=== PATIENT | male | born 1995 | race American Indian/Alaskan Native ===

== ENCOUNTER 2017-06-29 15:04 | Emergency (ER) | payer SELFPAY ==
[2017-06-29 16:34] LABS: Bilirubin,Urine NEG (Negative); Blood,Urine NEG (Negative); Ketones,Urine NEG (Negative); Leukocyte Esterase,Urine LG (Negative); Nitrite,Urine NEG (Negative); Protein,Urine <15 mg/dL mg/dL (Negative); Urobilinogen,Urine < 2.0 mg/dL (<2.0)
[2017-06-29 17:12] LABS: Basophils % (Auto) 0.4 % (0.0-1.8); Eosinophils % (Auto) 0.5 % (0.0-4.3); Hematocrit 52.1 % (35.5-45.6); Mean Corpuscular HGB Conc 33 % (32-34); Mean Corpuscular Hemoglobin 29 pg (28-32); Mean Corpuscular Volume 88 fl (84-94); Platelet Count 268 K/mm3 (140-440); Red Blood Count 5.91 M/mm3 (3.65-5.03); Red Cell Distribution Width 14.6 % (13.2-15.2); White Blood Count 11.5 K/mm3 (4.5-11.0)
[2017-06-29 17:18] LABS: Alanine Aminotransferase 8 units/L (7-56); Albumin 5.4 g/dL (3.9-5); Albumin/Globulin Ratio 1.4 %; Alkaline Phosphatase 100 units/L (35-129); Anion Gap 21 mmol/L; BUN/Creatinine Ratio 6; Blood Urea Nitrogen 5 mg/dL (9-20); Calcium 10.8 mg/dL (8.4-10.2); Carbon Dioxide 28 mmol/L (22-30); Chloride 93.3 mmol/L (98-107); Glucose 83 mg/dL (75-100); Lipase 17 units/L (13-60); Potassium 4.9 mmol/L (3.6-5.0); Sodium 137 mmol/L (137-145); Total Protein 9.3 g/dL (6.3-8.2)
[2017-06-29] MEDS ORDERED: MORPHINE IV ONE (17:31)
[2017-06-29] MEDS ORDERED: NACL 0.9% 1000 ML 1,000 ML IV ONE (17:31)
[2017-06-29] MEDS ORDERED: ROCEPHIN/NS 1 GM/50 ML 1 GM/50 ML BAG IV ONE (17:32)
--- NOTE | 2017-06-29 17:33 | Emergency Department Report ---
HPI - General Chief Complaint: Abdominal Pain Time Seen by Provider: 06/29/17 15:54 - HPI HPI: This is a 22 year-old male who presents to the emergency department from home, dropped off by his mother, with complaint of abdominal pain, nausea, vomiting and lightheadedness. He says that this occurred last week but that went away and then came back this morning. He has not taken anything for his symptoms prior to presentation. No recent travel or sick contacts at home. He does not have a primary care physician. He denies any dysuria, discharge, back pain, fever. He says that the abdominal pain changes locations depending on how he is laying or moving. He has a history of an intestinal obstruction requiring some type of surgical intervention that occurred a few years ago and he thinks it was done at [facility]. ED Past Medical Hx - Past Medical History Previous Medical History?: No - Surgical History Past Surgical History?: Yes Additional Surgical History: intenstine obstruction - Social History Smoking Status: Former Smoker Substance Use Type: None - Medications Home Medications: Home Medications Medication Instructions Recorded Confirmed Last Taken Type HYDROcodone/APAP 5-325 [[place] 1 each PO Q6HR PRN #14 tablet 01/06/14 Unknown Rx 5/325 mg] Ibuprofen [Motrin 600 MG tab] 600 mg PO Q8H PRN #30 tablet 01/06/14 Unknown Rx Nitrofurantoin Monohyd/M-Cryst 100 mg PO BID #14 capsule 06/29/17 Unknown Rx [Macrobid 100 mg Capsule] ED Review of Systems ROS: Stated complaint: ABDOMINAL PAIN,HEADACHE Other details as noted in HPI Comment: All other systems reviewed and negative Constitutional: denies: chills, fever Eyes: denies: eye pain, eye discharge, vision change ENT: denies: ear pain, throat pain Respiratory: denies: cough, shortness of breath, wheezing Cardiovascular: denies: chest pain, palpitations Gastrointestinal: abdominal pain, nausea, vomiting Genitourinary: denies: urgency, dysuria Musculoskeletal: denies: back pain, joint swelling, arthralgia Skin: denies: rash, lesions Neurological: denies: weakness, numbness Physical Exam - Physical Exam Vital Signs: Vital Signs 06/29/17 15:27 Temperature 98.3 F Pulse Rate 87 Respiratory 20 Rate Blood Pressure 109/71 O2 Sat by Pulse 99 Oximetry Physical Exam: GENERAL: The patient is well-developed well-nourished. HENT: Normocephalic. Atraumatic. Patient has moist mucous membranes. EYES: Extraocular motions are intact. Pupils equal reactive to light bilaterally. NECK: Supple. Trachea is midline. CHEST/LUNGS: Clear to auscultation. There is no respiratory distress noted. HEART/CARDIOVASCULAR: Regular. There is no tachycardia. There is no gallop rub or murmur. ABDOMEN: Abdomen is soft. There is some slight tenderness to palpation to the left lower quadrant of the abdomen. No guarding rebound tenderness. No peritoneal signs. Patient has normal bowel sounds. There is no abdominal distention. SKIN: Skin is warm and dry. NEURO: The patient is awake, alert, and oriented. The patient is cooperative. The patient has no focal neurologic deficits. The patient has normal speech. MUSCULOSKELETAL: There is no tenderness or deformity. There is no limitation range of motion. There is no evidence of acute injury. ED Course Vital Signs 06/29/17 15:27 Temperature 98.3 F Pulse Rate 87 Respiratory 20 Rate Blood Pressure 109/71 O2 Sat by Pulse 99 Oximetry ED Medical Decision Making - Lab Data Result diagrams: 06/29/17 16:41 06/29/17 16:41 - Radiology Data Radiology results: image reviewed interpreted by me: Abdominal x-ray shows some nonspecific nonobstructive bowel gas. - Medical Decision Making 22-year-old male presents with some abdominal pain that appears to move around to different portions of his abdomen. He also complained of some nausea and vomiting but there has been no further vomiting since being in the emergency department. Labs are mostly unremarkable except for 33 white blood cells found in the urinalysis. Patient was given some IV fluid resuscitation, pain medication and Zofran. Upon reevaluation he says he is feeling much improved. With further questioning, the patient does say that there may have been some discharge. The 33 white blood cells in the urine may be secondary to urethritis as opposed to a obvious urinary tract infection. For this reason he was covered with IM Rocephin, even though he got IV Rocephin for a UTI, as well as some azithromycin which will cover him for gonorrhea and chlamydia. He was given referrals for primary care and will return to the ER with any worsening of symptoms or any acute distress. Despite the patient's history of a previous bowel production, his abdomen is soft, nondistended and he only has mild tenderness to palpation. X-ray shows some nonspecific stool and gas but no signs of any obstructive process. For this reason I did not feel that a CT of the abdomen and pelvis was necessary at this time. However if he continues to have abdominal pain, nausea, vomiting, he is to return for advanced imaging. - Differential Diagnosis urethritis, UTI, constipation, colitis, diverticulitis Critical Care Time: No Critical care attestation.: If time is entered above; I have spent that time in minutes in the direct care of this critically ill patient, excluding procedure time. ED Disposition Clinical Impression: Urethritis Abdominal pain Qualifiers: Abdominal location: unspecified location Qualified Code(s): R10.9 - Unspecified abdominal pain Nausea & vomiting Qualifiers: Vomiting type: unspecified Vomiting Intractability: non-intractable Qualified Code(s): R11.2 - Nausea with vomiting, unspecified UTI (urinary tract infection) Qualifiers: Urinary tract infection type: acute cystitis Hematuria presence: without hematuria Qualified Code(s): N30.00 - Acute cystitis without hematuria Disposition: TO HOME OR SELFCARE Is pt being admited?: No Condition: Stable Instructions: Nonspecific Urethritis in Men (ED), Abdominal Pain (ED) Additional Instructions: Please follow up with a primary care physician in the next few days. Return to the emergency Department with any worsening of her symptoms, inability to keep down any liquids or solids, development of fever, or any acute distress. Prescriptions: Nitrofurantoin Monohyd/M-Cryst [Macrobid 100 mg Capsule] 100 mg PO BID #14 capsule Referrals: KENNEDY LE MD [Primary Care Provider] - 3-5 Days NIVIA SHELLEY MD, PHD [Staff Physician] - 3-5 Days [facility] [Outside] - 3-5 Days Forms: STI Treatment and Prevention Time of Disposition: 19:16
--- NOTE | 2017-06-29 17:54 | XRay Report ---
FINAL REPORT EXAM: XR ABDOMEN 2V HISTORY: Abd pain TECHNIQUE: Supine and upright abdomen PRIORS: None. FINDINGS: Moderate amount of stool and gas present within the colon. No evidence of colonic or small bowel dilatation. No signs of free air. No abnormal calcifications are identified. IMPRESSION: Nonobstructive bowel gas pattern. No acute abnormality seen.
[2017-06-29] MEDS ORDERED: ZOFRAN IV ONE (18:23)
[2017-06-29] MEDS ORDERED: ZITHROMAX PO ONE (18:50)
[2017-06-29] MEDS ORDERED: XYLOCAINE 1% MPF 5 mL INFILTRATI ONE (18:50)
[2017-06-29] MEDS ORDERED: ROCEPHIN IM ONE (18:50)
[2017-06-29 19:30] VITALS: BP 111/68
== END 2017-06-29 19:40 | disposition home or self-care (01) ==
LOC: ED 15:04
DX: N30.00 Acute cystitis without hematuria (principal); N34.2 Other urethritis; Z87.891 Personal history of nicotine dependence; Z91.048 Other nonmedicinal substance allergy status; Z91.013 Allergy to seafood
CPT/HCPCS: 36415; 74020; 80053; 81001; 83690; 85025; 96365; 96372; 96375; 99284; J0696; J2270; J2405; J7030

== ENCOUNTER 2019-02-09 21:54 | Emergency (ER) | payer MEDICAID ==
[2019-02-09] MEDS ORDERED: IBUPROFEN PO ONE (22:39)
--- NOTE | 2019-02-09 22:39 | Emergency Department Report ---
Blank Doc - Documentation Documentation: pt presents with sore throat that began three days hurts to swallow no fever cough rhinorrhea congestion no ear pain no sick contacts no N/V/D has not been drinking as much liquid no PMHx no medications allergies +smoker non drinker no drug use rapid strep sent CXR
--- NOTE | 2019-02-09 23:27 | XRay Report ---
PROCEDURE: XR CHEST ROUTINE 2V TECHNIQUE: PA and lateral chest radiographs were obtained. HISTORY: cough, fever COMPARISONS: None. FINDINGS: Heart: Normal. Mediastinum/Vessels: Normal. Lungs/Pleural space: Normal. Bony thorax: No acute osseous abnormality. IMPRESSION: Normal examination. This document is electronically signed by Amanda Barrett DO., Feb 09 2019 11:25:24 PM ET
[2019-02-10] MEDS ORDERED: NORCO PO ONE (01:02)
[2019-02-10] MEDS ORDERED: BICILLIN L-A IM ONE (01:02)
[2019-02-10] MEDS ORDERED: DECADRON IM ONE (01:02)
--- NOTE | 2019-02-10 01:08 | Emergency Department Report ---
ED General Adult HPI - General Chief complaint: Upper Respiratory Infection Stated complaint: HEADACHE/SORE THROAT/DIZZINESS/LIGHT HEADED Time Seen by Provider: 02/09/19 22:35 Source: patient Mode of arrival: Ambulatory Limitations: No Limitations - History of Present Illness Initial comments: Patient is a 23-year-old [place] male who is presenting with headache and sore throat for the last 2 days. Patient states that he has a minimal cough. Patient has had chills and fever. Patient states pain is worse when swallowing and he is able to tolerate by mouth. Severity scale (0 -10): 6 Quality: burning Consistency: constant - Related Data Previous Rx's Medication Instructions Recorded Last Taken Type HYDROcodone/APAP 5-325 [[place] 1 each PO Q6HR PRN #14 tablet 01/06/14 Unknown Rx 5/325 mg] Ibuprofen [Motrin 600 MG tab] 600 mg PO Q8H PRN #30 tablet 01/06/14 Unknown Rx Nitrofurantoin Monohyd/M-Cryst 100 mg PO BID #14 capsule 06/29/17 Unknown Rx [Macrobid 100 mg Capsule] HYDROcodone/ACETAMINOPHEN 15 ml PO Q6H PRN #150 solution 02/10/19 Unknown Rx [Hydrocodon-Acetamin 7.5-325/15] Allergies Allergy/AdvReac Type Severity Reaction Status Date / Time pollen extracts AdvReac Intermediate Swelling Verified 06/29/17 15:27 seafood AdvReac Intermediate Angioedema Uncoded 06/29/17 15:27 ED Review of Systems ROS: Stated complaint: HEADACHE/SORE THROAT/DIZZINESS/LIGHT HEADED Other details as noted in HPI Comment: All other systems reviewed and negative ED Past Medical Hx - Past Medical History Previous Medical History?: No - Surgical History Past Surgical History?: No Additional Surgical History: intenstine obstruction - Social History Smoking Status: Current Every Day Smoker Substance Use Type: None - Medications Home Medications: Home Medications Medication Instructions Recorded Confirmed Last Taken Type HYDROcodone/APAP 5-325 [[place] 1 each PO Q6HR PRN #14 tablet 01/06/14 Unknown Rx 5/325 mg] Ibuprofen [Motrin 600 MG tab] 600 mg PO Q8H PRN #30 tablet 01/06/14 Unknown Rx Nitrofurantoin Monohyd/M-Cryst 100 mg PO BID #14 capsule 06/29/17 Unknown Rx [Macrobid 100 mg Capsule] HYDROcodone/ACETAMINOPHEN 15 ml PO Q6H PRN #150 solution 02/10/19 Unknown Rx [Hydrocodon-Acetamin 7.5-325/15] ED Physical Exam - General Limitations: No Limitations General appearance: alert, in no apparent distress - Head Head exam: Present: atraumatic, normocephalic, other (no reproducible sinus tenderness) - Eye Eye exam: Present: normal appearance, PERRL, EOMI - ENT ENT exam: Present: mucous membranes moist. Absent: normal orophraynx (patient with bilateral tonsillar swelling with erythema.) - Neck Neck exam: Present: normal inspection, lymphadenopathy (anterior cervical) - Respiratory Respiratory exam: Present: normal lung sounds bilaterally. Absent: respiratory distress, wheezes, rales, rhonchi - Cardiovascular Cardiovascular Exam: Present: regular rate, normal rhythm. Absent: systolic murmur, diastolic murmur, rubs, gallop - GI/Abdominal GI/Abdominal exam: Present: soft, normal bowel sounds. Absent: distended, tenderness, guarding, rebound - Rectal Rectal exam: Present: deferred - Extremities Exam Extremities exam: Present: normal inspection - Back Exam Back exam: Present: normal inspection - Neurological Exam Neurological exam: Present: alert, oriented X3 - Psychiatric Psychiatric exam: Present: normal affect, normal mood - Skin Skin exam: Present: warm, dry, intact, normal color. Absent: rash ED Course Vital Signs 02/09/19 02/09/19 22:03 22:36 Temperature 98.1 F 102.5 F H Pulse Rate 109 H 109 H Respiratory 16 16 Rate Blood Pressure 96/59 104/55 O2 Sat by Pulse 98 98 Oximetry ED Medical Decision Making - Lab Data Lab Results 02/09/19 Range/Units Unknown Group A Strep Rapid Negative (Negative) Patient states that he did not gag when the rapid strep was taken. I do question the validity of this test - Medical Decision Making Patient with fever or sore throat. Anterior cervical lymph nodes. Patient likely with strep. Patient to be treated with Bicillin and Decadron and will be given this for symptomatic relief. Critical care attestation.: If time is entered above; I have spent that time in minutes in the direct care of this critically ill patient, excluding procedure time. ED Disposition Clinical Impression: Acute bacterial tonsillitis Disposition: TO HOME OR SELFCARE Is pt being admited?: No Does the pt Need Aspirin: No Condition: Stable Instructions: Tonsillitis (ED) Referrals: SANDRA MARTINI MD [Primary Care Provider] - 3-5 Days Time of Disposition: 01:07
[2019-02-10 01:56] VITALS: BP 110/62
== END 2019-02-10 01:54 | disposition home or self-care (01) ==
LOC: ED 21:54
DX: J03.80 Acute tonsillitis due to other specified organisms (principal); B96.89 Other specified bacterial agents as the cause of diseases classified elsewhere; Z91.09 Other allergy status, other than to drugs and biological substances; Z91.013 Allergy to seafood
CPT/HCPCS: 71046; 87116; 87430; 96372; 99283; J0561; J1100